=== PATIENT | male | born 1965 | race Caucasian/White ===

== ENCOUNTER 2022-12-29 08:12 | Observation (INO) | payer OTHER ==
[2022-12-29 08:51] VITALS: BMI 34.4
[2022-12-29] MEDS ORDERED: MAG HYDROX/AL HYDROX/SIMETH -MYLANTA- ORAL SUSPENSION PO ONE (10:33)
[2022-12-29] MEDS ORDERED: FAMOTIDINE 20 MG/50 ML IVPB 20 MG in PREMIX 50 IVPB ONE (10:33)
[2022-12-29 10:39] LABS: INR 1.05 (0.83-1.09); PROTHROMBIN TIME (PATIENT) 12.2 SEC (9.7-13.0)
[2022-12-29 10:40] LABS: BASO % 0.5 % (0-2.0); HEMOGLOBIN 14.3 GM/dL (11.7-16.9); MCH 29.4 pg (25.7-33.7); MCHC 34.8 g/dl (32.0-35.9); MEAN CELL VOLUME 84.3 fl (80-96); MEAN PLT VOLUME 6.9 fl (7.5-11.1); MONO % 8.4 % (3.8-10.2); NEUT % 65.1 % (42.8-82.8); PLATELET COUNT 223 10^3/uL (134-434); RBC 4.86 M/mm3 (4.00-5.60); RDW 14.1 % (11.9-15.9)
[2022-12-29 10:42] LABS: ACTIVATED PTT 26.7 SECONDS (25.2-36.5)
[2022-12-29 11:00] LABS: POTASSIUM 4.2 mmol/L (3.5-5.1)
[2022-12-29 11:02] LABS: BLOOD UREA NITROGEN 18.8 mg/dL (7-18); CALCIUM 9.7 mg/dL (8.5-10.1)
[2022-12-29 11:04] LABS: ALBUMIN 3.8 g/dl (3.4-5.0)
[2022-12-29 11:05] LABS: CREATININE 1.2 mg/dL (0.55-1.3)
[2022-12-29 11:06] LABS: BILIRUBIN,TOTAL 0.6 mg/dL (0.2-1); TOT PROT 7.5 g/dl (6.4-8.2)
[2022-12-29] MEDS ORDERED: FAMOTIDINE 20 MG/50 ML IVPB 20 MG/50 ML MG IVPB ONE (11:21)
[2022-12-29] MEDS ORDERED: MAG HYDROX/AL HYDROX/SIMETH 30 ML UNIT-DOSE CUP ONE (11:21)
[2022-12-29] MEDS ORDERED: ASPIRIN 81 MG CHEWABLE TABLETS PO ONE (13:33)
[2022-12-29] MEDS ORDERED: ATORVASTATIN CA 40 MG TABLET (FP) PO ONE (13:38)
[2022-12-29] MEDS ORDERED: ASPIRIN 81 MG CHEWABLE TABLETS ONE (13:39)
[2022-12-29] MEDS ORDERED: metoPROLOL SUCCINATE 25 MG TAB.SR.24H (FP) PO ONE (14:03)
[2022-12-29] MEDS ORDERED: ATORVASTATIN CA 40 MG TABLET (FP) ONE (14:03)
[2022-12-29] MEDS: metoPROLOL SUCCINATE 25 MG TAB.SR.24H (FP) PO SCH (14:05)
[2022-12-29] MEDS: INSULIN SLIDING SCALE (NOVOLOG) 1 VIAL SQ SCH ×2 (19:14→22:29)
[2022-12-30] MEDS ORDERED: INSULIN (NOVOLOG) ASPART 100 UNITS/ML 10ML VIAL ONE (05:51)
[2022-12-30] MEDS: INSULIN SLIDING SCALE (NOVOLOG) 1 VIAL SQ SCH ×4 (06:31→22:01)
[2022-12-30 08:40] LABS: HEMATOCRIT 39.1 % (35.4-49); HEMOGLOBIN 13.7 GM/dL (11.7-16.9); MCH 29.7 pg (25.7-33.7); MCHC 35.1 g/dl (32.0-35.9); MEAN CELL VOLUME 84.7 fl (80-96); MEAN PLT VOLUME 7.2 fl (7.5-11.1); PLATELET COUNT 200 10^3/uL (134-434); RBC 4.61 M/mm3 (4.00-5.60); RDW 13.9 % (11.9-15.9); WHITE BLOOD COUNT 4.9 K/mm3 (4.0-10.0)
[2022-12-30] MEDS ORDERED: amLODIPine BESYLATE 10 MG TABLET (FP) PO ONE (08:45)
[2022-12-30] MEDS ORDERED: hydrALAZINE HCL 20 MG/ML VIAL IVPUSH PRN (08:50)
[2022-12-30 09:00] LABS: POTASSIUM 3.9 mmol/L (3.5-5.1)
[2022-12-30 09:10] LABS: BLOOD UREA NITROGEN 19.4 mg/dL (7-18); CALCIUM 8.9 mg/dL (8.5-10.1)
[2022-12-30 09:14] LABS: CREATININE 1.2 mg/dL (0.55-1.3)
[2022-12-30] MEDS ORDERED: REGADENOSON 0.4 MG/5 ML PRE-FILLED SYRINGE IVPUSH ONE ×2 (10:03→10:45)
[2022-12-30] MEDS: ASPIRIN COATED 81 MG TABLET.EC PO SCH (12:08)
[2022-12-30] MEDS: metoPROLOL SUCCINATE 25 MG TAB.SR.24H (FP) PO SCH (12:08)
[2022-12-30] MEDS ORDERED: VALSARTAN 160 MG TABLET PO SCH (13:00)
[2022-12-30] MEDS: hydrALAZINE HCL 50 MG TABLET (FP) PO SCH ×2 (13:26→21:54)
[2022-12-30] MEDS ORDERED: INSULIN (LEVEMIR) 100 UNITS/ML UNITS SQ SCH ×2 (22:00)
[2022-12-31] MEDS: INSULIN SLIDING SCALE (NOVOLOG) 1 VIAL SQ SCH ×3 (06:50→16:57)
[2022-12-31] MEDS: metFORMIN HCL 500 MG TABLET (FP) PO SCH ×2 (06:50→16:37)
[2022-12-31] MEDS ORDERED: INSULIN (LEVEMIR) 100 UNITS/ML UNITS SQ SCH (07:00)
[2022-12-31] MEDS ORDERED: VALSARTAN 160 MG TABLET PO SCH (07:31)
[2022-12-31] MEDS ORDERED: INSULIN (NOVOLOG) ASPART 100 UNITS/ML 10ML VIAL ONE (07:48)
[2022-12-31] MEDS ORDERED: amLODIPine BESYLATE 10 MG TABLET (FP) PO SCH (10:00)
[2022-12-31] MEDS: metoPROLOL SUCCINATE 25 MG TAB.SR.24H (FP) PO SCH (10:49)
[2022-12-31] MEDS: ASPIRIN COATED 81 MG TABLET.EC PO SCH (10:49)
[2022-12-31] MEDS: hydrALAZINE HCL 50 MG TABLET (FP) PO SCH (10:49)
[2022-12-31 15:36] VITALS: BP 153/80; PULSE 90; RESP 20; TEMP 98.3
[2023-01-01] MEDS ORDERED: NEBIVOLOL 10 MG TABLET (FP) PO SCH (10:00)
== END 2022-12-31 17:47 | disposition home or self-care (01) ==
LOC: JER 08:12 → JERBED 13:35 → J4S 12-30 01:10 → JERBED 12-30 01:10 → J4W 12-30 02:16
PROVIDERS: ADMIT Family Medicine; ATTEND Family Medicine
PROC: 3E013VG Introduction of Insulin into Subcutaneous Tissue, Percutaneous Approach (ICD-10-PCS; principal; 2022-12-29)
PROC: 3E033GC Introduction of Other Therapeutic Substance into Peripheral Vein, Percutaneous Approach (ICD-10-PCS; 2022-12-29)
DX: E11.9 Type 2 diabetes mellitus without complications (principal); I10 Essential (primary) hypertension; E78.49 Other hyperlipidemia; Z91.148 Patient's other noncompliance with medication regimen for other reason; J44.9 Chronic obstructive pulmonary disease, unspecified; R07.89 Other chest pain; F17.200 Nicotine dependence, unspecified, uncomplicated; Z72.3 Lack of physical exercise; Z79.4 Long term (current) use of insulin
CPT/HCPCS: 36415; 71045-TC-FY; 78452-TC; 80048; 80053; 82962; 83036; 83690; 83735; 84484; 85025; 85027; 85610; 85730; 93005; 93010; 93017; 93306-TC; 96365; 96372; 96375; 99285-25; A9502; G0378; J2785